=== PATIENT | male | born 1970 | race Caucasian/White ===

== ENCOUNTER 2023-01-19 08:42 | Outpatient (CLI) | payer BC, SELFPAY | END 2023-01-19 08:43 | disposition home or self-care (01) | PROVIDERS: Visit Provider Emergency Medicine | DX: Z00.00 Encounter for general adult medical examination without abnormal findings (principal); Z13.1 Encounter for screening for diabetes mellitus; Z13.6 Encounter for screening for cardiovascular disorders; Z12.5 Encounter for screening for malignant neoplasm of prostate | CPT/HCPCS: 80048; 80061; 84153 ==

== ENCOUNTER 2025-03-29 11:15 | Outpatient (CLI) | payer BC, SELFPAY | END 2025-03-29 11:16 | disposition home or self-care (01) | PROVIDERS: PCP Family Medicine; Visit Provider Family Medicine | DX: Z00.00 Encounter for general adult medical examination without abnormal findings (principal); Z13.6 Encounter for screening for cardiovascular disorders; Z12.5 Encounter for screening for malignant neoplasm of prostate | CPT/HCPCS: 80053; 80061; G0103 ==